=== PATIENT | male | born 1990 | race Caucasian/White ===

== ENCOUNTER 2017-11-08 03:29 | Emergency (ER) | payer OTHER ==
[~2017-11-08] VITALS: Ht 175.3 cm; Wt 66.2 kg
[2017-11-08 03:55] VITALS: Ht 175.3 cm; Wt 66.2 kg
[2017-11-08 05:27] VITALS: BP 145/87
== END 2017-11-08 05:28 | disposition home or self-care (01) ==
LOC: ED 03:29
DX: J03.90 Acute tonsillitis, unspecified (principal)
CPT/HCPCS: J1100